=== PATIENT | female | born 1955 | race Caucasian/White ===

== ENCOUNTER 2017-12-06 15:12 | Inpatient (IN) | payer OTHER ==
[~2017-12-06] VITALS: Ht 170.2 cm; Wt 42.6 kg
[2017-12-06 15:15] VITALS: BP 108/70
--- NOTE | 2017-12-06 15:20 | NUR ---
BIBA TO ED BED 4, REPORT TAKEN FROM SAMUEL INVENTORY COORDINATOR NURSE.
--- NOTE | 2017-12-06 15:23 | NUR ---
MONICA FROM [facility] FOR C/O SUPRAPUBIC 6/10 PAIN SINCE THIS MORNING. PER EMS, INDWELLING SMITH CATH WAS REMOVED AND APPROXIMATELY 50ML OF BLOOD DRAINED FROM VAGINAL AREA. DENIES N/V/D. RECIEVED 5MG METHADONE TAXI DANCER FOR PAIN. PT IS SLOW TO RESPOND BUT, ALERT AND ORIENTED X 3. PT DENIES N/V/D; SKIN IS HAS PRESSURE WOUND TO BUTTOCKS AND SACRUM, PHOTOS TAKEN, PINK/WARM/DRY; AAOX4, PERRL, WITH UNABLE TO AMBULATE WITHOUT ASSISTIVE DEVICES; LUNGS CLEAR BL, BREATHING UNLABORED; HR EVEN AND REGULAR, BL PERIPHERAL PULSES PRESENT; BS ACTIVE X4, NO TENDERNESS TO PALPATION, NO HEPATOSPLENOMEGALLY PALPATED, RESONANT TO PERCUSSION; PT DENIES ANY FEVER, CP, SOB, OR COUGH AT THIS TIME; PT STATES 8/10 PAIN AT THIS TIME; VSS; PATIENT POSITIONED FOR COMFORT; HOB ELEVATED; BEDRAILS UP X2; BED DOWN.
--- NOTE | 2017-12-06 16:14 | NUR ---
Spoke to Primary Nurse RN Mamadou , reports that he noticed minimal blood and clots when caruso cath removed, and that pt experienced relief. Pt currently pain free and denies any dysuria. abd flat, soft , mild tender with palpation. bs +. Vss. Dr Simmons iformed of updated status from nursing care.
--- NOTE | 2017-12-06 17:48 | NUR ---
SPOKE TO PEDRITO RN, UPDATED ON STATUS. PT GOING TO BE TRANFERRED BACK TO FACILITY.
--- NOTE | 2017-12-06 18:28 | NUR ---
NO ACUTE CHANGE IN CONDITION. PT WITH EYES CLOSED, IN NAD. RESP EVEN AND UNLABORED, ON RA@97%. WAITING FOR TRANSPORT
--- NOTE | 2017-12-06 19:32 | NUR ---
SETTING UP TRANSPORT AT THIS TIME.
--- NOTE | 2017-12-06 22:00 | NUR ---
changed diaper with blood soaked and with blood clots, noted by ermd, and for admission.
--- NOTE | 2017-12-06 22:15 | NUR ---
transport had been cancelled
--- NOTE | 2017-12-06 22:38 | NUR ---
US TECH AT BEDSIDE, FOR ULTRASOUND, PATIENT TOLERATED WELL.
--- NOTE | 2017-12-06 22:50 | NUR ---
LAB AT BEDSIDE, BLOOD SENT TO LAB
[2017-12-06 22:59] LABS: BASOPHILS # (AUTO) 0.1 K/uL (0.00-0.22); BASOPHILS % (AUTO) 1.1 % (0.0-2.0); EOSINOPHILS # (AUTO) 0.1 K/uL (0-0.4); EOSINOPHILS % (AUTO) 1.7 % (0.0-4.0); HEMATOCRIT 27.5 % (36-48); HEMOGLOBIN 8.8 g/dL (12.0-16.0); LYMPHOCYTES # (AUTO) 1.8 K/uL (2.5-16.5); LYMPHOCYTES % (AUTO) 35.1 % (20.5-51.1); MEAN CORPUSCULAR HEMOGLOBIN 31 pg (27-31); MEAN CORPUSCULAR HGB CONC 32 g/dL (33-37); MEAN CORPUSCULAR VOLUME 94.8 fL (80-94); MONOCYTES # (AUTO) 0.5 K/uL (0.8-1.0); MONOCYTES % (AUTO) 10.2 % (1.7-9.3); NEUTROPHILS # (AUTO) 2.6 K/uL (1.8-7.7); NEUTROPHILS % (AUTO) 51.9 % (42.2-75.2); PLATELET COUNT (AUTO) 471 K/uL (140-450); RED CELL DISTRIBUTION WIDTH 15.7 % (11.6-13.7)
[2017-12-06] MEDS ORDERED: ATOR20TA PO (23:00)
[2017-12-06] MEDS ORDERED: DOL10 PO (23:00)
[2017-12-06] MEDS ORDERED: VITA1TAB44 PO (23:00)
[2017-12-06] MEDS ORDERED: ASCO500T45 PO (23:00)
[2017-12-06] MEDS ORDERED: GABA300C PO (23:00)
[2017-12-06] MEDS ORDERED: POTA99TA PO (23:00)
[2017-12-06] MEDS ORDERED: DOCU250S72 PO (23:00)
[2017-12-06] MEDS ORDERED: CLOP75TA26 PO (23:00)
[2017-12-06] MEDS ORDERED: ZINC220C12 PO (23:00)
[2017-12-06] MEDS ORDERED: THIA500T9 PO (23:00)
[2017-12-06] MEDS ORDERED: SENN-73 PO (23:00)
[2017-12-06] MEDS ORDERED: VITB12 PO (23:00)
[2017-12-06] MEDS ORDERED: ALBU3SOL83 IH (23:00)
[2017-12-06] MEDS ORDERED: MULT-2246 PO (23:00)
[2017-12-06 23:06] LABS: ANION GAP 6.8 (8-16); CARBON DIOXIDE 33.7 mmol/L (21-32); CREATININE 0.5 mg/dL (0.6-1.3); POTASSIUM 4.5 mmol/L (3.5-5.1)
[2017-12-06 23:09] LABS: PROTHROMBIN TIME 11.4 secs (10.8-13.4)
[2017-12-06 23:12] LABS: ALBUMIN 2.1 g/dL (3.4-5.0); TOTAL BILIRUBIN 0.5 mg/dL (0.0-1.0)
--- NOTE | 2017-12-06 23:36 | NUR ---
Patient noted to have existing wounds upon arrival to ER. Photos taken of wound and placed in chart. Wound covered with dressing. Physician informed.
--- NOTE | 2017-12-07 00:22 | NUR ---
Patient appears to be resting comfortably in bed. Vital Signs within normal limits. Respirations even and unlabored.
[2017-12-07] MEDS ORDERED: ACETAMINOPHEN 325 MG TAB PO PRN (00:55)
[2017-12-07] MEDS ORDERED: ALBUTEROL 0.083% 2.5 MG/3 ML NEBU INH PRN (00:55)
[2017-12-07] MEDS ORDERED: MORPHINE SULFATE 4 MG/ML SYR IVP PRN (00:55)
--- NOTE | 2017-12-07 01:04 | NUR ---
Patient will be admitted to care of DR. RUIZ. Admited to MS. Will go to room ICU BED #3 Belongings list completed. Report to RAVEN COOK
[2017-12-07 01:30] VITALS: BP 112/70
--- NOTE | 2017-12-07 01:30 | NUR ---
RECEIVED PT FROM ED STAFF NO ACUTE DISTRESS NOTED.
--- NOTE | 2017-12-07 01:45 | NUR ---
PT AWAKE SITTING UP IN BED AAOX4 MOVING ALL EXTREMITIES WELL. LUNG SOUNDS CLEAR EVEN AND UNLABORED. REGULAR HEART RATE NO EDEMA NOTED. ABD SOFT NON DISTENDED, PT HAVING BLOOD IN URINE DENIES PAIN @ THIS TIME. PICC LINE TO R UPPER ARM NOTED. MULTIPLE HEALED PRESSURE ULCER TO LEFT AND RIGHT BUTTOCKS. UNSTAGEABLE PRESSURE ULCER TO SACRAL COCCYX. WILL CONTINUE TO OBSERVE.
--- NOTE | 2017-12-07 04:00 | NUR ---
PT ASLEEP RESTING COMFORTABLY, NO S/S OF ACUTE DISTRESS NOTED. WILL CONTINUE TO OBSERVE
[2017-12-07] MEDS: ONDANSETRON 4 MG/2 ML VIAL IVP PRN ×2 (06:21→12:10)
--- NOTE | 2017-12-07 07:15 | NUR ---
RECEIVED REPORT FROM ANDRES GUTIÉRREZ RN. PT IS SLEEPING BUT AROUSES. PT IS A&OX3 BUT ABLE TO BE ORIENTATED. PERRLA. PT IS ON ROOM AIR. LUNG SOUNDS ARE CLEAR BILATERALLY BUT DIMINISHED AT BOTH BASES. S1S2 HEARD. BOWEL SOUNDS ARE ACTIVE IN ALL 4 QUADRANTS; ABD IS SOFT AND NON TENDER. PT IS ON STANDARD PRECAUTION. PT DENIES ALL PAIN. PT IS ABLE TO MOVE ALL EXTREMITIES. PICC LINE UPPER RIGHT ARM; FLUSHES; DRESSING DRY AND INTACT; ASYMPTOMATIC. PT'S SKIN IS NOT INTACT; SEE WOUND ASSESSMENT; OPEN, UNSTAGABLE. PT HAS SCDS ON, BP MONITORING. PTS BED IS IN LOWEST POSITION; BED LOCKED AND ALARM ON. CALL LIGHT WITHIN REACH.
--- NOTE | 2017-12-07 07:29 | NUR ---
ENDORSED CARE TO DAY SHIFT FOR CONTINUITY OF CARE.
[2017-12-07 08:00] VITALS: BP 104/66
[2017-12-07] MEDS: GABAPENTIN 300 MG CAP PO SCH ×2 (08:36→20:48)
[2017-12-07] MEDS: ZINC SULF 220 MG CAP PO SCH (08:36)
--- NOTE | 2017-12-07 08:36 | NUR ---
CALLED EM, WOUND RN, ABOUT COMING TO SEE PT IN BED 2. LEFT VOICEMAIL.
--- NOTE | 2017-12-07 09:03 | NUR ---
DR. RUIZ AT BEDSIDE ASSESSING PT. UPDATE GIVEN AND ORDER RECEIVED.
--- NOTE | 2017-12-07 09:04 | NUR ---
PT STATES ABDOMINAL PAIN HAS STARTED BUT DOES NOT NEED MEDS
--- NOTE | 2017-12-07 09:25 | NUR ---
DR RUIZ WOULD LIKE A SURGICAL AND NEPHROLOGY CONSULT. HE STATED HE HAS CONTACTED BOTH DRS. WILL FOLLOW UP AND CALL DRS. WELL
--- NOTE | 2017-12-07 10:15 | NUR ---
PT GOING TO CT OF CHEST.
--- NOTE | 2017-12-07 10:43 | NUR ---
RT AT BEDSIDE DOING BREATHING TREATMENT.
--- NOTE | 2017-12-07 10:44 | NUR ---
PT BEGAN DRINKING ORAL SOLUTION OF CONTRAST FOR CT OF ABD AND PELVIS.
--- NOTE | 2017-12-07 10:55 | NUR ---
PATIENT HAS BEEN SCREENED AND CATEGORIZED HIGH NUTRITION RISK. PATIENT WILL BE SEEN WITHIN 1-2 DAYS OF ADMISSION. 12/07/17 12/08/[address]
--- NOTE | 2017-12-07 11:36 | NUR ---
SMITH PLACED, SALLY RED BLOOD IMMEDIATELY BEGAN DRAINING INTO SMITH COLLECTION BAG. THIN LIQUID. FLEET ENEMA WAS ALSO ADMINISTERED.
[2017-12-07 12:05] VITALS: BP 119/74
--- NOTE | 2017-12-07 12:30 | NUR ---
ULTRASOUND AT BEDSIDE.
--- NOTE | 2017-12-07 12:58 | NUR ---
PT HAS FINISHED CONTRAST ORAL MEDICATION.
[2017-12-07] MEDS ORDERED: METHADONE 10 MG TAB PO SCH (13:00)
--- NOTE | 2017-12-07 14:00 | NUR ---
PT LEFT FOR NUCLEAR MED EXAM.
--- NOTE | 2017-12-07 14:24 | NUR ---
DARK RED/MAROON URINE IN SMITH UROMETER COLLECTION BAG INSERTED 1130 1230: 280 ML 1330: 80 ML 1430: 65 ML TOTAL: 425ML IN 3 HOURS.
--- NOTE | 2017-12-07 15:07 | NUR ---
Spoke with Marlin, chief security officer. She will come by tomorrow 12/08/17 to assess pt's wound.
--- NOTE | 2017-12-07 15:07 | NUR ---
RD came by to give suggestions for diet: insert NG tube Vital AF feeds Start 10ml/hr + 100ml free H20 flush; increase by 10 ml every 4-6 hrs until goal of 50 ml/hr + 100ml Free h20 flush is met.
--- NOTE | 2017-12-07 15:16 | NUR ---
Paged Dr. Santillan to discuss RD recommendations.
[2017-12-07] MEDS ORDERED: LACTULOSE 20 GM/30 ML UDC PO PRN (15:20)
--- NOTE | 2017-12-07 15:24 | NUR ---
12/07/17 RD INITIAL ASSESSMENT COMPLETED PLEASE REFER TO NUTRITION ASSESSMENT UNDER CARE ACTIVITY FOR ESTIMATED NUTRITIONAL NEEDS. 1. CONTINUE REGULAR DIET TOLERATED 2. RECOMMEND ENSURE TID WITH MEALS 3. RECOMMEND 1 PKT BETO QD FOR WOUND HEALING 4. IF PO INTAKE DOES NOT MEET OR EXCEED 50%, CONSIDER INTIATING TF VITAL AF 1.2 @ 50 ML/H WITH 100 ML H2O FLUSH VIA NG TUBE --D/T PT UNDERWEIGHT (BMI 14.3 KG/M2) --THIS WILL PROVIDE 1440 KCAL (100% OF ESTIMATED ENERGY NEEDS), 90 GM PROTEIN (100% ESTIMATED PROTEIN NEEDS), AND 1373.[address] TO FOLLOW-UP 2-3 DAYS, HIGH RISK FREIDA CURRAN RD
--- NOTE | 2017-12-07 15:24 | NUR ---
Spoke with Aman Fiore, pt's emergency contact. He said they are trying to get pt moved to [facility]. He has requested help from Camille with transferring pt into the center.
--- NOTE | 2017-12-07 15:25 | NUR ---
Called Camille about calling pt's emergency contact, Aman Fiore. Left a voicemail with information`` and Aman's contact info
--- NOTE | 2017-12-07 15:49 | NUR ---
EM COOK, SPOKE WITH DR. RUIZ ABOUT RD RECOMMENDATIONS. HE SAID NO NGT. REMAIN NORMAL DIET.
[2017-12-07 16:00] VITALS: BP 129/91
--- NOTE | 2017-12-07 16:21 | NUR ---
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 Darius stated patient does not have an existing Advance Directive and makes her own medical decisions, patient's nurse Carline made aware. Addendum: 12/07/17 at 1631 by Alicia Cortes SS Per JOEY Crowley, has not talked to patient regarding hospice evaluation and will follow up with him regarding this.
--- NOTE | 2017-12-07 16:25 | NUR ---
Faxed authorization for medical records to: [facility] [address] [place] [address]
--- NOTE | 2017-12-07 16:26 | NUR ---
Spoke with pt about s.s request to help with moving to [facility]. Pt states she wants to move there because "my people are there". Called Alicia, major case detective, to let her know of this
--- NOTE | 2017-12-07 16:28 | NUR ---
called [facility] (medical correspondence) to let them know about the fax coming through. Office open [phone] M-F. left a voicemail.
--- NOTE | 2017-12-07 16:30 | NUR ---
UA COLLECTED AND TAKEN TO LAB
--- NOTE | 2017-12-07 16:59 | NUR ---
PT THIS EVENING HAS PROGRESSIVELY BECOME MORE CONFUSED, A&0X2. CONTINUING TO REORIENT PT TO UNIT
[2017-12-07 17:40] LABS: BILIRUBIN,URINE NEGATIVE (NEGATIVE); BLOOD, URINE LARGE (NEGATIVE); LEUKOCYTE ESTERASE ,URINE SMALL (NEGATIVE); NITRITE, URINE POSITIVE (NEGATIVE); UGLUCOSE NEGATIVE (NEGATIVE)
--- NOTE | 2017-12-07 17:41 | NUR ---
RECEIVED FAX FROM [email or web address] WITH [employer]
[2017-12-07 17:47] LABS: APPEARANCE,URINE HAZY (CLEAR); COLOR,URINE BLOODY (YELLOW)
[2017-12-07 17:54] LABS: RBC,URINE TOO NUMEROUS TO COUN /HPF (0-5)
[2017-12-07 17:57] LABS: WBC,URINE 16-25 (MOD) /HPF (0-5)
--- NOTE | 2017-12-07 19:25 | NUR ---
GAVE REPORT TO MARCI COOK FOR CONTINUATION OF ADA Addendum: 12/07/17 at 1933 by Carline Trivedi RN GAVE REPORT TO VEL COOK, FOR CONTINUATION OF CARE
--- NOTE | 2017-12-07 19:30 | NUR ---
AFEBRILE. PT IS AOX2. FLAT EFFECT NOTED. ABLE TO MAKE NEEDS KNOWN AND RESPOND TO COMMANDS. BILATERAL LUNG SOUNDS CLEAR ON UPPER LOBES, DIMINISHED ON LOWER LOBES. ON ROOM AIR. BOWEL SOUND ACTIVE ON AUSCULTATION, PT IS ON REGULAR DIET. DID NOT EAT DINNER TIME MEAL CITING LACK OF APPETITE, BUT DRANK TEA, COFFEE, AND WATER. PT IS INCONTINENT OF BOWEL AND BLADDER. SMITH CATHETER IN PLACE, HEMATURIA NOTED. PICC LINE NOTED IN LEFT UPPER ARM, NO FLUIDS INFUSING AT THIS TIME. SKIN IS DRY AND NORMAL IN COLOR. NON-INTACT SKIN ON SACRAL COCCYX WOUND NOTED, COVERED WITH DRESSING. PT IS ABLE TO REPOSITION SELF IN BED, STANDARD AND FALL PRECAUTIONS MAINTAINED. BED IN LOWEST POSITION.
[2017-12-07] MEDS: ATORVASTATIN 20 MG TAB PO SCH (20:48)
[2017-12-07 21:04] VITALS: BP 105/60
--- NOTE | 2017-12-07 22:15 | NUR ---
PT HAD BOWEL MOVEMENT, LOOSE, BROWN, MODERATE AMOUNT OF STOOL. OPTIFOAM WAS SOILED AND REMOVED. PERINEAL AREA CLEANSED AND OPTIFOAM REAPPLIED. CLEAN LINENS PROVIDED AND PT REPOSITIONED. SCDS ON BILATERAL LEGS.
--- NOTE | 2017-12-07 23:16 | NUR ---
URINE OUTPUT OF 100ML MEASURED FROM TIME OF [id number]. URINE IS DARK RED IN COLOR (HEMATURIA). PT DENIES PAIN AT THIS TIME WILL CONTINUE TO MONITOR.
[2017-12-08] VITALS: BP 122/69
--- NOTE | 2017-12-08 00:26 | NUR ---
PT HAD BOWEL MOVEMENT, DARK BROWN, MINIMAL STOOL. DRESSING ON SACRAL COCCYX AREA SOILED AND REMOVED. SMITH CATHETER CARE PROVIDED. PT REPOSITIONED IN BED. BED IN LOWEST POSITION. STANDARD AND CONTACT PRECAUTIONS MAINTAINED. AFEBRILE AND VSS.
--- NOTE | 2017-12-08 00:30 | NUR ---
PT STATED HAVING PAIN IN BILATERAL LOWER LEGS. PRN TYLENOL ADMINISTERED. WILL CONTINUE TO MONITOR.
--- NOTE | 2017-12-08 01:45 | NUR ---
PT SLEEPING QUIETLY.
--- NOTE | 2017-12-08 03:49 | NUR ---
BOWEL MOVEMENT, MINIMAL STOOL/SMEAR. NO COMPLAINTS OF PAIN AT SACRAL COCCYX AREA. CLEANSED PERINEAL AREA, FRESH BED PAD, AND PILLOW SUPPORT PROVIDED. PLACED NEW OPTIFOAM DRESSING OVER WOUND ON SACRAL COCCYX AREA. LIGHT RED-ORANGE TINGED URINE OUTPUT OF 150ML.
--- NOTE | 2017-12-08 05:05 | NUR ---
DR. RUIZ AT PT BEDSIDE. INFORMED PT OF HIS RECOMMENDATIONS FOR HOSPICE AND TO FOLLOWUP WITH FUND DEVELOPMENT MANAGER.
[2017-12-08 05:30] VITALS: BP 126/81
[2017-12-08 06:15] LABS: BASOPHILS % (AUTO) 0.8 % (0.0-2.0); EOSINOPHILS # (AUTO) 0.1 K/uL (0-0.4); EOSINOPHILS % (AUTO) 3.3 % (0.0-4.0); HEMATOCRIT 21.9 % (36-48); HEMOGLOBIN 7.1 g/dL (12.0-16.0); LYMPHOCYTES # (AUTO) 1.5 K/uL (2.5-16.5); LYMPHOCYTES % (AUTO) 40.7 % (20.5-51.1); MEAN CORPUSCULAR HEMOGLOBIN 30 pg (27-31); MEAN CORPUSCULAR HGB CONC 32 g/dL (33-37); MEAN CORPUSCULAR VOLUME 93.2 fL (80-94); MONOCYTES # (AUTO) 0.4 K/uL (0.8-1.0); MONOCYTES % (AUTO) 11.2 % (1.7-9.3); NEUTROPHILS # (AUTO) 1.6 K/uL (1.8-7.7); PLATELET COUNT (AUTO) 373 K/uL (140-450); RED BLOOD CELL COUNT(AUTO) 2.35 MIL/uL (4.20-5.40); RED CELL DISTRIBUTION WIDTH 15.5 % (11.6-13.7); WHITE BLOOD COUNT (AUTO) 3.6 K/uL (4.8-10.8)
--- NOTE | 2017-12-08 06:30 | NUR ---
URINE OUTPUT OF 100ML MUNIR [id number]. PT STILL CITES HAVING LACK OF APPETITE, BUT WILL DRINK FLUIDS. Addendum: 12/08/17 at 0632 by Haylee Sullivan RN PT IS AWAKE, SITTING UPRIGHT IN BED, FLAT AFFECT NOTED. BED IN LOWEST POSITION.
[2017-12-08 06:37] LABS: ALBUMIN 1.8 g/dL (3.4-5.0); CARBON DIOXIDE 33.2 mmol/L (21-32); CREATININE 0.4 mg/dL (0.6-1.3); POTASSIUM 3.2 mmol/L (3.5-5.1); TOTAL BILIRUBIN 0.5 mg/dL (0.0-1.0)
--- NOTE | 2017-12-08 07:05 | NUR ---
TRANSFERRED PT TO [facility] AND PROVIDED BEDSIDE REPORT TO RN FOR CONTINUITY OF CARE.
--- NOTE | 2017-12-08 07:06 | NUR ---
RECEIVED BEDSIDE REPORT FROM ICU RETAIL COSMET[employer] SALES BEAUTY ADVISOR NURSE. PATIENT IS AWAKE, ALERT AND ORIENTEDX2. NO SIGNS OF DISTRESS ON ROOM AIR. R UPPER ARM PICC LINE, CLEAN, DRY AND INTACT. NO BLOOD RETURN. PATIENT IS BEDBOUND. SKIN HAS ULCERS. SACRAL COCCYX ULCER UNSTAGEABLE, BILATERAL HIPS STAGE 1, BILATERAL BUTTOCKS STAGE 2. PATIENT IS INCONTINENT. HAD MULTIPLE LOOSE STOOLS W RETAIL COSMETICS SALES BEAUTY ADVISOR. BED IN LOW POSITION. CALL LIGHT WITHIN REACH. WILL CONTINUE TO MONITOR THE PATIENT.
[2017-12-08 08:00] VITALS: BP 113/64
[2017-12-08] MEDS ORDERED: POLYETHYLENE GLYCOL 17 GM/PKT PO SCH (09:00)
[2017-12-08] MEDS ORDERED: METHADONE 10 MG TAB PO SCH (09:00)
[2017-12-08] MEDS: ZINC SULF 220 MG CAP PO SCH (09:19)
[2017-12-08] MEDS: GABAPENTIN 300 MG CAP PO SCH ×2 (09:20→20:45)
--- NOTE | 2017-12-08 09:22 | NUR ---
ADMINISTERED MEDS. PATIENT TOLERATED WELL. NO SIGNS OF DISTRESS. WILL CONTINUE TO MONITOR THE PATIENT. PATIENT REFUSED LAXATIVE, HAD LOOSE STOOL TODAY AND THROUGHOUT THE NIGHT.
[2017-12-08] MEDS ORDERED: POLY17PD46 PO (09:32)
[2017-12-08] MEDS ORDERED: DOL10 PO (09:32)
[2017-12-08] MEDS ORDERED: LACT10SO11 PO (09:32)
[2017-12-08] MEDS ORDERED: MORP20SO37 PO (09:44)
--- NOTE | 2017-12-08 10:45 | NUR ---
WOUND CARE EVALUATION NOTES: REASON FOR EVALUATION: SACRALCOCCYX WOUND SKIN ASSESSMENT DONE ON THIS 61 Y/O FEMALE PATIENT FROM [facility] ADMITTED TO [facility], WITH INITIAL DIAGNOSIS OF VAGINAL BLEEDING AND BLADDER PAIN. PAST MEDICAL HISTORY INCLUDE METASTATIC CA WITH UNKNOWN ORIGIN. PT ADMITTED WITH MULTIPLE PRESSURE ULCERS, PT STATED THAT [place] AND SAT ON THE STEERT ALL DAY LONG TO ASK FOR MONEY. PT IS AWARE HER SKIN IS OPEN BUT DOEST UNDERSTAND WHAT PRESSURE INJURY IS. ALL ABOVE INFORMATION WAS OBTAINED FROM THE ADMISSION H&P AND PT. PT IS AAX4. PT. FOLLOW DIRECTIONS SKIN WARM AND DRY TO TOUCH, TOENAILS ARE SHORT AND THICKENED,NO EDEMA, NO HAIR GROWTH, BLE ARE DRY AND FLAKY, BILATERAL PEDAL PULSES PRESENT AND NORMAL. E/C #16 PATENT WITH SMALL AMOUNT OF YELLOW COLOR URINE OUTPUT. INCONTINENT OF BOWEL. PLAN OF CARE DISCUSSED WITH PT. AND PRIMARY RN. PT.VERBALIZES UNDERSTANDING. PT REQUIRES MORE TEACHING. INTEGUMENTARY: -RIGHT UPPER ARM SKIN TEAR 0.5X0.3X0.1CM, WOUND BED IS PINK, MOIST, NO ODOR -RIGHT AND LEFT HIPS STAGE 1 PRESSURE INJURIES, LEFT HIP 1.5X1.5 CM, AND RIGHT HIP 1X1CM -LEFT AND RIGHT ISCHIUMS MULTIPLE HEALING PRESSURE INJURY STAGE 2, RE-EPITHELIALIZATION WITH LEFT ISCHIUM LARGEST 2X2.5CM, WOUND BED IS PINK, DRY, NO ODOR, DARRICK-WOUND SKIN INTACT. RIGHT ISCHUMS 2.5X2.5 CM, WOUND BED IS PINK, DRY, NO ODOR, DARRICK-WOUND SKIN INTACT. -SACRALCOCCYX PRESSURE INJURY UN-STAGEABLE, ACTIVE WOUND SI SIZE, 3X2.2 CM WITH DARRICK WOUND DENUDE SKIN AND SURROUNDING REDNESS 5X3 CM, 90% OF SCATTERED YELLOW/ BROWN SLOUGH TO WOUND BED, SMALL AMOUNT OF SEROUS DRAINAGE, NO ODOR -BLE DRY AND FLAKY WITH MULTIPLE PIN POINTS DRY SCABS, NO REDNESS RECOMMENDATIONS: -APPLY FORM DRESSING TO LEFT AND RIGHT HIPS Q7D AND PRN IF SOILING -CLEANSE BILATERAL ISCHIUMS WITH MILD SOAP AND WATER, PAT DRY, APPLY HYDRAGUARD AND GOVERNMENT GAUGER BIDWC -CLEANSE SACRALCOCCYX WOUND WITH WOUND CARE SOLUTION, PAT DRY, APPLY THERAHONEY GEL AND COVER WITH DRY DRESSING QD AND PRN IF SOILING - APPLY HYDRAGUARD TO BLE GOVERNMENT GAUGER BIDWC -TURN AND REPOSITION PATIENT Q 2H -PRESSURE REDISTUBUTRITION SURFACE -OFFLOAD BILATERAL HEELS BY PLACING PILLOWS UNDER CALVES AT ALL TIMES, UNLESS OTHERWISE CONTRAINDICATED -KEEP SKIN CLEAN AND DRY AT ALL TIMES. RECOMMENDATIONS DISCUSSED WITH PRIMARY RN WILL FOLLOW UP PATIENT Q7-10 DAYS AND PRN. PLEASE CONTACT WOUND CARE NURSE FOR ANY QUESTIONS AND CHANGES IN SKIN CONDITION.
--- NOTE | 2017-12-08 11:30 | NUR ---
PATIENT EATING LUNCH. NO SIGNS OF DISTRESS ON ROOM AIR. BED IN LOW POSITION. CALL LIGHT WITHIN REACH. WILL CONTINUE TO MONITOR THE PATIENT
[2017-12-08] MEDS ORDERED: THERAHONEY GEL 42.5 GM TP SCH (13:00)
[2017-12-08] MEDS ORDERED: HYDRAGUARD CREAM TP SCH (13:00)
[2017-12-08] MEDS: ONDANSETRON 4 MG/2 ML VIAL IVP PRN (13:01)
--- NOTE | 2017-12-08 13:01 | NUR ---
PATIENT IS NAUSEATED. ADMINISTERED PRN ANTI NAUSEA MEDS, PATIENT TOLERATED WELL. WILL CONTINUE TO MONITOR
--- NOTE | 2017-12-08 13:49 | NUR ---
RECEIVED ORDER FOR PATIENT TO GO BACK TO [facility] [place] [place]. I CALLED SERVANDO FROM [facility]. AUTH FOR TRANSPORT IS [id number].
[2017-12-08] MEDS ORDERED: POTA10TE30 PO (13:54)
--- NOTE | 2017-12-08 15:46 | NUR ---
PATIENT HAD ANOTHER BM. RN PLASTIC SURGERY CLEANSED THE PATIENT. CLEANSED THE SACRAL COCCYX WOUND W WOUND CLEANSER, APPLIED THERAHONEY AND PLACED OPTIFORM. PUT HYDROGUARD ON BILATERAL BUTTOCKS. PATIENT TOLERATED WELL. BED IN LOW POSITION. CALL LIGHT WITHIN REACH. WILL CONTINUE TO MONITOR THE PATIENT
[2017-12-08 16:00] VITALS: BP 140/88
--- NOTE | 2017-12-08 16:27 | NUR ---
PATIENT TALKING TO HOSPICE NURSE. NO SIGNS OF DISTRESS ON ROOM AIR. WILL CONTINUE TO MONITOR THE PATIENT
--- NOTE | 2017-12-08 16:37 | NUR ---
Point Of Care Specialist Note: Late entry for earlier today: I called and spoke with Fernie from [facility] , verified their fax number . I faxed hospice referral to [facility]. I faxed patient's medical information to [facility].
--- NOTE | 2017-12-08 17:58 | NUR ---
PATIENT IS EATING DINNER. NO COMPLAINTS AT THIS TIME. WILL CONTINUE TO MONITOR THE PATIENT. [place] [facility] [place]
--- NOTE | 2017-12-08 18:00 | NUR ---
Acid Correction Hand Note: Per Sally from [facility] , patient may go to room 12A today, accepting physician is , charge nurse Natty made aware. Addendum: 12/08/17 at 1909 by Alicia Cortes SS Pro Enciso from [facility] , he will continue to follow up with patient at [facility] regarding hospice evaluation.
[2017-12-08] MEDS ORDERED: POTASSIUM CHLORIDE 10 MEQ TABER PO SCH (18:14)
--- NOTE | 2017-12-08 18:30 | NUR ---
CALLED [facility] FOR TRANSP[place] [facility] [place] [place] TIME [place] 10:00 PM .RN YOON AWARE.
--- NOTE | 2017-12-08 18:36 | NUR ---
GAVE TELEPHONE REPORT TO HEYDI, NURSE IN [facility]. ANSWERED ALL QUESTIONS AT THIS TIME. GAVE CALLBACK NUMBER IF NEEDED. WILL HAVE PATIENT EDUCATED AND SIGN PAPERWORK
--- NOTE | 2017-12-08 18:50 | NUR ---
EDUCATED PATIENT ON DISEASE, ABN S/SX, WHEN TO GO TO THE NEAREST ER, FOLLOW UP W PCP, EDUCATED ON MEDS. PATIENT VERBALIZED UNDERSTANDING. SIGNED ALL PAPERWORK. REMOVED PICC LINE. IT DID NOT HAVE BLOOD RETURN, DR RUIZ GAVE THE OK TO REMOVE. [facility] SAID TO KEEP THE SMITH
--- NOTE | 2017-12-08 19:25 | NUR ---
GAVE BEDSIDE REPORT TO VIOLIN TEACHER NURSE. PATIENT ENDORSED IN STABLE CONDITION. SHE WILL REMOVED ID BANDS AT D/C
--- NOTE | 2017-12-08 19:25 | NUR ---
RECEIVED REPORT AT BEDSIDE FROM TEE RN DAYSHIFT NURSE. PT AOX 2 IN LOW BED, ALL FALLS PRECAUTIONS IN PLACE, BAGS PACKED AND PT AWAITING D/C. PT HAD NO C/O VOICED AT THIS TIME.
[2017-12-08 20:00] VITALS: BP 127/76
--- NOTE | 2017-12-08 20:03 | NUR ---
PT IN LOW BED WITH SIDE RAILS UP X2 AND CALL MCCLOUD IN REACH. PT LUNGS CLEAR TO AUSCULTATION AND B/S HEARD ALL 4 QUADS. PT DRESSINGS DRY AND INTACT. PT AWARE THAT HER GUIDE RAIL CLEANER, GUIDE RAIL CLEANER LICK MAY CALL AND SHE GIVES FULL PERMISSION FOR HIM TO KNOW HER CURRENT UPDATES. PT EXPRESSED CONCERN OVER HER DIAGNOSIS OF CANCER AND DISCHARGE PLAN WITH HOSPICE. DISCHARGE PLAN REVIEWED.
--- NOTE | 2017-12-08 20:22 | NUR ---
PT HAS SMITH CATHETER INTACT AND DRAINING YELLOW URINE NO HEMATURIA NOTED, V/S FOLLOWS T 98.5 P 93 R 18 B/P 127/76 O2 97% WITH R/A
[2017-12-08] MEDS: ATORVASTATIN 20 MG TAB PO SCH (20:44)
--- NOTE | 2017-12-08 21:00 | NUR ---
MEDICATIONS GIVEN ORDERED, NO C/O VOICED , PT AWAITING TRANSPORT.
--- NOTE | 2017-12-08 22:33 | NUR ---
[facility] HERE TO TAKE PT REPORT GIVEN AT BEDSIDE RESIDENT TRANSFERRED FROM [facility] VIA 2 EMT'S FROM [facility]. PT IN STABLE CONDITION. SHE HAS SMITH CATHETER 16 GAMBIAN INTACT DRAINING YELLOW URINE. PT HAS NO C/O VOICED GOING BACK TO [facility] RM 12B.
[2017-12-15] MEDS ORDERED: FOAM DRESSING TP SCH (09:00)
== END 2017-12-08 22:35 | DRG 861 ==
LOC: MED 15:12 → MIC 12-07 01:04 → MTU 12-08 07:28
PROVIDERS: ADMIT Hospitalist; ATTEND Hospitalist
DX: G89.3 Neoplasm related pain (acute) (chronic) (principal); J96.20 Acute and chronic respiratory failure, unspecified whether with hypoxia or hypercapnia; E43 Unspecified severe protein-calorie malnutrition; C78.7 Secondary malignant neoplasm of liver and intrahepatic bile duct; C79.51 Secondary malignant neoplasm of bone; C78.6 Secondary malignant neoplasm of retroperitoneum and peritoneum; K59.00 Constipation, unspecified; I10 Essential (primary) hypertension; J44.9 Chronic obstructive pulmonary disease, unspecified; R31.9 Hematuria, unspecified; R33.9 Retention of urine, unspecified; R32 Unspecified urinary incontinence; C79.70 Secondary malignant neoplasm of unspecified adrenal gland; T83.091A Other mechanical complication of indwelling urethral catheter, initial encounter; Y83.8 Other surgical procedures as the cause of abnormal reaction of the patient, or of later complication, without mention of misadventure at the time of the procedure; Y92.89 Other specified places as the place of occurrence of the external cause; Z85.9 Personal history of malignant neoplasm, unspecified; Z68.1 Body mass index [BMI] 19.9 or less, adult; Z88.6 Allergy status to analgesic agent; Z79.899 Other long term (current) drug therapy; Z79.02 Long term (current) use of antithrombotics/antiplatelets; I25.2 Old myocardial infarction; Z95.5 Presence of coronary angioplasty implant and graft
CPT/HCPCS: 36415; 71250; 76705; 76830; 80053; 81001; 85025; 85610; 85730; 86900; 86901; 87081; 87086; 87186; 94640; 99285; J2270; J2405; J7613; Q0092